=== PATIENT | female | born 1980 | race Caucasian/White ===

== ENCOUNTER 2019-06-17 15:47 | Emergency (ER) | payer BC, MEDICAID ==
[~2019-06-17] VITALS: Ht 175.3 cm; Wt 72.6 kg
[~2019-06-17 15:47] MED LIST: PREN27TA7 OR
[2019-06-17] MEDS ORDERED: IBUPROFEN 800 MG TAB PO ONE (16:30)
[2019-06-17 17:50] VITALS: BP 145/99
== END 2019-06-17 17:52 | disposition home or self-care (01) ==
LOC: ER 15:47
DX: S96.912A Strain of unspecified muscle and tendon at ankle and foot level, left foot, initial encounter (principal); R03.0 Elevated blood-pressure reading, without diagnosis of hypertension; Z79.899 Other long term (current) drug therapy; W20.8XXA Other cause of strike by thrown, projected or falling object, initial encounter; Y93.89 Activity, other specified; Y92.89 Other specified places as the place of occurrence of the external cause; Y99.8 Other external cause status
CPT/HCPCS: 73630